=== PATIENT | male | born 1935 | race Caucasian/White ===

== ENCOUNTER → 2016-10-26 | Outpatient (CLI) | payer MEDICARE, OTHER ==
[2016-07-02 17:38] VITALS: BP 104/60
[~2016-10-26] MED LIST: ASPI-482 PO; ATOR40TA PO; CARV25TA2 PO; EZET10TA3 PO; FENO145T PO; HYDR-2762 PO; LYCO10CA PO; NIAC1000 PO; OMEG1CAP38 PO; OMEG92TA PO; OMEP20CA9 PO; QUIN20TA PO; RED600CA2 PO; TAMS0.4C97 PO; TEMA15CA PO; TRAZ100T12 PO
== END | disposition home or self-care (01) ==
LOC: PCVCCLINIC 11:37
PROVIDERS: ATTEND Internal Medicine Cardiovascular Disease
DX: E78.5 Hyperlipidemia, unspecified (principal); I25.10 Atherosclerotic heart disease of native coronary artery without angina pectoris; I42.9 Cardiomyopathy, unspecified; I65.29 Occlusion and stenosis of unspecified carotid artery
CPT/HCPCS: 80061; 93005; G0463

== ENCOUNTER → 2018-01-16 | Outpatient (CLI) | payer MEDICARE, OTHER | END | disposition home or self-care (01) | LOC: PCVCCLINIC 10:30 | DX: I25.10 Atherosclerotic heart disease of native coronary artery without angina pectoris (principal); E78.00 Pure hypercholesterolemia, unspecified; I10 Essential (primary) hypertension; I65.29 Occlusion and stenosis of unspecified carotid artery; Z88.8 Allergy status to other drugs, medicaments and biological substances; Z79.82 Long term (current) use of aspirin; Z79.899 Other long term (current) drug therapy | CPT/HCPCS: 80061; 93005; G0463 ==

== ENCOUNTER → 2019-01-17 | Outpatient (CLI) | payer MEDICARE, OTHER ==
[2016-07-02 17:38] VITALS: BP 104/60
[~2019-01-17] MED LIST changes: +EZET10TA18 PO; -EZET10TA3 PO; -HYDR-2762 PO; +HYDR-2765 PO; +OMEP20CA10 PO; -OMEP20CA9 PO; +TRAZ-86 PO; -TRAZ100T12 PO
== END | disposition home or self-care (01) ==
LOC: PCVCCLINIC 13:00
PROVIDERS: ATTEND Internal Medicine Cardiovascular Disease
DX: I25.10 Atherosclerotic heart disease of native coronary artery without angina pectoris (principal); I10 Essential (primary) hypertension; I65.23 Occlusion and stenosis of bilateral carotid arteries; E78.00 Pure hypercholesterolemia, unspecified; E11.9 Type 2 diabetes mellitus without complications; Z88.8 Allergy status to other drugs, medicaments and biological substances; Z79.82 Long term (current) use of aspirin; Z79.899 Other long term (current) drug therapy
CPT/HCPCS: 36415; 80061; 93005; G0463

== ENCOUNTER → 2019-02-05 | Outpatient (CLI) | payer MEDICARE, OTHER ==
[2016-07-02 17:38] VITALS: BP 104/60
[~2019-02-05] MED LIST changes: +REGADENOSON 0.4 MG/5 ML DISP.SYRIN. IV ONE
--- NOTE | 2019-02-05 12:59 | PCVCIMAG ---
EXAM: BILATERAL CAROTID DUPLEX INDICATION: Carotid Occlusive Disease. FINDINGS: Doppler Measurements (centimeters per second): RIGHT: Peak CCA-67, Peak ECA-97, Diastolic ICA-18, Peak ICA-71, ICA/CCA Ratio-1.0. LEFT: Peak CCA-62, Peak ECA-66, Diastolic ICA-12, Peak ICA-54, ICA/CCA Ratio-0.9. RIGHT CAROTID: The carotid bulb has mild plaque. The proximal internal carotid artery shows <40% stenosis. The common carotid artery shows no significant stenosis. The external carotid artery shows no significant stenosis. LEFT CAROTID: The carotid bulb has mild plaque. The proximal internal carotid artery shows <40% stenosis. The common carotid artery shows no significant stenosis. The external carotid artery shows no significant stenosis. Antegrade flow in both vertebral arteries. IMPRESSION: <40% stenosis of the right internal carotid artery with mild plaque. <40% stenosis of the left internal carotid artery with mild plaque. LOC:[place] [id number]
--- NOTE | 2019-02-05 15:02 | PCVCIMAG ---
APPROVED REPORT Imaging Protocol: Rest Tc-99m/Stress Tc-99m 1 day Study performed: 02/05/2019 12:56:35 Indication: CAD, Cardiomyopathy Patient Location: Out-Patient Stress Nurse: Lizbeth Mas RN, Alta Rios RN NH Tech:Coreen Russo [facility] Ht: 6 ft 1 in Wt: 235 lbs BSA: 2.30 m2 HR: 61 bpm BP: 183/80 mmHg BMI: 31.0 Rhythm: Sinus Bradycardia, Intraventricular conduction delay, nonspecific ST-T abnormalities Medical History Medical History: HTN, Hyperlipidemia Medications: ASA, Atorvastatin, Carvedilol, Zetia, Omeprazole, Quinapril Allergies: Nabumetone Cardiac Risk Factors: Age Pretest Chest Pain Characteristics: No chest pain Exercise History: Sedentary Meds Held (24 hrs): Carvedilol Resting Data Rest SPECT myocardial perfusion imaging was performed in supine position 45 minutes following the intravenous injection of 10.9 mCi of Tc-99m Sestamibi. Time of rest injection: 1215 Date: 02/05/2019 Administration Route: IV Administration Site: Right AC Pharmacologic Stress Pharmacologic stress test was performed by injecting Regadenoson 0.4 mg IV push over 10-15 seconds immediately followed by the intravenous injection of 32.9 mCi of Tc-99m Sestamibi. Time of stress injection: 1330 Date: 02/05/2019 Administration Route: IV Administration Site: Right AC Gated Stress SPECT was performed 45 minutes after stress injection. The images were gated to evaluate regional wall motion and calculate left ventricular ejection fraction. Stress Test Details Stress Test: Pharmacologic stress testing performed using 0.4 mg of regadenoson per 5 mL given IV over 10 seconds. Reason for pharmacologic stress test: unsteady gait. HRMax Heart Rate (APMHR): 137 bpm Resting HR: 61 bpmTarget HR (85% APMHR): 116 bpm Max HR Achieved: 98 bpm % of APMHR: 71 Recovery HR: 86 bpm BP Resting BP: 183/80 mmHg Max BP: 175/79 mmHg ECG Resting ECG: Sinus Bradycardia, Intraventricular conduction delay, nonspecific ST-T abnormalities Stress ECG: Sinus Rhythm, nonspecific ST-T abnormalities, Intraventricular conduction delay Arrhythmia: PVC's Recovery ECG: Sinus Rhythm, nonspecific ST-T abnormalities, Intraventricular conduction delay Clinical Reason for Termination: Completed protocol Stress Symptoms: Dyspnea Symptoms resolved with caffeine. Stress ECG Conclusion ECG: Non-ischemic Study Quality Study: Good Study Data Post stress, the left ventricular ejection was 52%.. SSS: 6 SRS: 4 SDS: 4 TID = 0.98. 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 Post stress, the left ventricular ejection was 52%. No change since prior study dated May 2016. Interpreted by: Lenard Byers MD Electronically Approved: 02/05/2019 14:59:17 <Conclusion> ECG: Non-ischemic
== END | disposition home or self-care (01) ==
LOC: PCVCIMAG 11:27
PROVIDERS: ATTEND Internal Medicine Cardiovascular Disease
DX: I65.23 Occlusion and stenosis of bilateral carotid arteries (principal); I25.10 Atherosclerotic heart disease of native coronary artery without angina pectoris; I42.9 Cardiomyopathy, unspecified; I10 Essential (primary) hypertension; E78.5 Hyperlipidemia, unspecified; E78.00 Pure hypercholesterolemia, unspecified; Z88.8 Allergy status to other drugs, medicaments and biological substances
CPT/HCPCS: 78452; 93017; 93880; A9500; J2785